=== PATIENT | female | born 1985 | race African-American/Black ===

== ENCOUNTER 2017-07-27 17:25 | Emergency (ER) | payer SELFPAY ==
[2017-07-27 17:37] LABS: BILIRUBIN,URINE NEGATIVE (NEG); CLARITY,URINE CLEAR; COLOR,URINE YELLOW; GLUCOSE,URINE NEGATIVE (NEG); NITRITE,URINE NEGATIVE (NEG); PROTEIN,URINE NEGATIVE (NEG-TRACE)
[2017-07-27 17:38] LABS: URINE HCG POC HCG NEGATIVE (Negative)
[2017-07-27 17:43] LABS: BACTERIA,URINE 0 /HPF (0-FEW); RBC,URINE 0 /HPF (0-2); SQUAMOUS EPITHELIAL CELL,UR MANY /LPF
[2017-07-27] MEDS: AZITHROMYCIN 250 MG TABLET. PO (18:16)
[2017-07-27] MEDS: metroNIDAZOLE 500 MG TABLET PO (18:16)
[2017-07-27] MEDS: cefTRIAXone IM 250 MG VIAL IM (18:16)
== END 2017-07-27 18:43 | disposition home or self-care (01) ==
LOC: ER 17:25
DX: Z11.3 Encounter for screening for infections with a predominantly sexual mode of transmission (principal); R30.0 Dysuria; R35.0 Frequency of micturition; R39.15 Urgency of urination; M41.9 Scoliosis, unspecified
CPT/HCPCS: 81001; 81025; 87491; 87591; 96372; 99284; J0696; Q0144

== ENCOUNTER 2019-04-15 16:29 | Emergency (ER) | payer MEDICAID ==
[~2019-04-15] VITALS: Ht 154.9 cm; Wt 65.8 kg
[2019-04-15] MEDS ORDERED: ONDANSETRON ODT 4 MG TAB.RAPDIS. PO ONE (17:00)
[2019-04-15] MEDS ORDERED: AZITHROMYCIN 250 MG TABLET. PO ONE (17:00)
[2019-04-15] MEDS ORDERED: cefTRIAXone IM 250 MG VIAL IM ONE (17:00)
--- NOTE | 2019-04-15 17:06 | PHYS DOC ---
Past Medical History Past Medical History: Other Additional Past Medical Histor: scoliosis Past Surgical History: No Surgical History Alcohol Use: None Drug Use: None Adult General Chief Complaint Chief Complaint: SEXUALLY TRANSMITTED DISEASE HPI HPI Patient is a 33 year old Female who presents with states the metal she's been having sexual intercourse with has drainage from his penis. Patient states that she needs to be checked for such a transient diseases. Patient denies Abdominal pain, abnormal vaginal discharge, dysuria, nausea, vomiting, fevers, back pain, painful sex. Review of Systems Review of Systems : Sexual transmitted disease exposure. Denies dysuria or hematuria [] All other systems were reviewed and found to be within normal limits, except as documented in this note. Current Medications Current Medications Current Medications Medications (Trade) Dose Ordered Sig/Vivi Start Time Stop Time Status Last Admin Dose Admin Azithromycin (Zithromax) 1,000 mg 1X ONCE 04/15/19 17:00 04/15/19 17:01 DC 04/15/19 17:00 1,000 MG Ceftriaxone Sodium (Rocephin Im) 250 mg 1X ONCE 04/15/19 17:00 04/15/19 17:01 DC 04/15/19 17:00 250 MG Ondansetron HCl (Zofran Odt) 4 mg 1X ONCE 04/15/19 17:00 04/15/19 17:01 DC 04/15/19 17:00 4 MG Allergies Allergies Allergies Coded Allergies Type Severity Reaction Last Updated Verified No Known Drug Allergies 07/27/17 No Physical Exam Physical Exam Constitutional: Well developed, well nourished, no acute distress, non-toxic appearance. [] Eyes: PERRLA, EOMI, conjunctiva normal, no discharge. [] Abdomen: Bowel sounds normal, soft, no tenderness, no masses, no pulsatile masses. [] Skin: Warm, dry, no erythema, no rash. [] Back: No tenderness, no CVA tenderness. [] Neurologic: Alert and oriented X 3, normal motor function, normal sensory function, no focal deficits noted. [] Psychologic: Affect normal, judgement normal, mood normal. Normal Physical Exam[] Current Patient Data Vital Signs Vital Signs Date Time Temp Pulse Resp B/P (MAP) Pulse Ox O2 Delivery O2 Flow Rate FiO2 04/15/19 17:07 98.6 71 16 126/96 (106) 99 Room Air 98.6 Lab Values Microbiology 11/25/19 Wet Prep - Final, Complete EKG EKG [] Radiology/Procedures Radiology/Procedures [] Course & Med Decision Making Course & Med Decision Making Abdomen soft and nontender. Patient denies any pain. Alert and oriented. Skin pink warm and dry. Vital signs within normal limits. Ambulatory with a steady gait. Patient is treated for Chlamydia and gonorrhea today. She is told that she will be called in 48 hours if they come back positive. 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 Patient left AMA without urinalysis results. I did however give her a prescription for BV. [place] Disclaimer Arnav Disclaimer This electronic medical record was generated, in whole or in part, using a voice recognition dictation system. Departure Departure Impression: Primary Impression: Concern about STD in female without diagnosis Additional Impression: Bacterial vaginosis Disposition: AGAINST MEDICAL ADVICE Condition: STABLE Referrals: NO PCP (PCP) Scripts Metronidazole (METRONIDAZOLE) 500 Mg Tablet 1 TAB PO BID for 7 Days, #14 TAB 0 Refills Prov: PIPPA YUSUF APRN 04/15/19 Problem Qualifiers PIPPA YUSUF APRN Apr 15, 2019 17:06
[2019-04-15 17:07] VITALS: BP 126/96
[2019-04-15 17:22] LABS: BILIRUBIN,URINE NEGATIVE (NEG); CLARITY,URINE CLOUDY; COLOR,URINE YELLOW; NITRITE,URINE NEGATIVE (NEG); PROTEIN,URINE NEGATIVE (NEG-TRACE)
[2019-04-15] MEDS ORDERED: METR-34 PO (17:29)
[2019-04-15 17:32] LABS: SQUAMOUS EPITHELIAL CELL,UR MANY /LPF
[2019-04-15 17:33] LABS: BACTERIA,URINE MODERATE /HPF (0-FEW); RBC,URINE 0 /HPF (0-2)
[2019-04-22 12:49] LABS: GC PROBE Negative (Negative)
== END 2019-04-15 17:30 | disposition left against medical advice (07) ==
LOC: ER 16:29
DX: N76.0 Acute vaginitis (principal); B96.89 Other specified bacterial agents as the cause of diseases classified elsewhere; Z20.2 Contact with and (suspected) exposure to infections with a predominantly sexual mode of transmission
CPT/HCPCS: 36415; 81001; 87086; 87491; 87591; 96372; 99284; J0696; Q0111; Q0144; Q0162